=== PATIENT | male | born 1975 | race Hispanic/Latino ===

== ENCOUNTER 2020-11-24 13:02 | Emergency (ER) | payer BC ==
[~2020-11-24] VITALS: Ht 177.8 cm; Wt 125.2 kg
[2020-11-24] MEDS ORDERED: ONDANSETRON HCL INJ 2MG/ML 2ML 2 MG/ML VIAL IV STA (13:13)
[2020-11-24] MEDS ORDERED: SODIUM CHLORIDE 0.9% 1000ML 1,000 ML IV SCH (13:15)
[2020-11-24] MEDS ORDERED: BENICAR20 MG PO (13:35)
[2020-11-24] MEDS ORDERED: AMLODIPINE BESYL5 MG PO (13:35)
[2020-11-24] MEDS ORDERED: SODIUM CHLORIDE 0.9% 1000ML 1,000 ML ONE (13:59)
[2020-11-24] MEDS ORDERED: ONDANSETRON HCL INJ 2MG/ML 2ML 2 MG/ML VIAL ONE (13:59)
[2020-11-24] MEDS ORDERED: DEXAMETHASONE SOD PHOS INJ 4 MG/ML VIAL IV ONE (14:15)
[2020-11-24] MEDS ORDERED: KETOROLAC TROMETHAMINE 30 MG/ML VIAL IV STA (14:15)
[2020-11-24] MEDS ORDERED: DEXAMETHASONE SOD PHOS INJ 4 MG/ML VIAL ONE (14:34)
[2020-11-24 17:14] VITALS: BP 166/91
[2020-11-24] MEDS ORDERED: ZITHROMAX250 MG PEG (17:17)
[2020-11-24] MEDS ORDERED: DECADRON6 MG PO (17:19)
[2020-11-24] MEDS ORDERED: ONDANSETRON ODT8 MG PO (17:21)
[2020-11-24] MEDS ORDERED: ZITHROMAX250 MG PO (17:23)
== END 2020-11-24 17:40 | disposition home or self-care (01) ==
LOC: FSED 13:15
DX: R05 Cough (principal); J20.9 Acute bronchitis, unspecified; R50.9 Fever, unspecified; R11.2 Nausea with vomiting, unspecified; I10 Essential (primary) hypertension; R91.8 Other nonspecific abnormal finding of lung field; R74.01 Elevation of levels of liver transaminase levels
CPT/HCPCS: 71046; 80048; 80076; 81003; 82553; 83880; 84484; 85025; 85379; 87400; 96374; 96375; 99284; J1100; J1885; J2405; J7030

== ENCOUNTER → 2022-12-26 | Outpatient (CLI) | payer BC ==
[~2022-12-26] MED LIST: AMLODIPINE BESYL5 MG PO; AMOX TR-K CLV1 EAC2 PO; BENICAR20 MG PO; CLOPIDOGREL75 MG PO; DECADRON6 MG PO; ONDANSETRON ODT8 MG PO; ZITHROMAX250 MG PEG; ZITHROMAX250 MG PO
== END ==
LOC: CT 14:18
PROVIDERS: ATTEND Family Medicine
DX: R91.8 Other nonspecific abnormal finding of lung field (principal)
CPT/HCPCS: 71250